=== PATIENT | female | born 1990 | race Caucasian/White ===

== ENCOUNTER 2017-01-03 18:55 | Outpatient (CLI) | payer OTHER ==
[~2017-01-03] VITALS: Ht 154.9 cm; Wt 82.9 kg
[~2017-01-03 18:55] MED LIST: FERR240T9 PO; IBUP800T25 PO; PERCOCET PO; PRENAT PO
[2017-01-03 19:52] VITALS: BP 105/56; PULSE 63; RESP 18; Ht 154.9 cm; Wt 82.9 kg
[2017-01-03 20:33] LABS: ADD UMIC YES; UR ASCORBIC ACID NEGATIVE (NEGATIVE); UR BACTERIA FEW /HPF (NONE SEEN); UR BILIRUBIN (Dip) NEGATIVE (NEGATIVE); UR BLOOD (Dip) NEGATIVE (NEGATIVE); UR CLARITY SLIGHTLY CLOUDY (CLEAR); UR COLOR YELLOW (YELLOW); UR GLUCOSE (Dip) NEGATIVE (NEGATIVE); UR KETONES (Dip) TRACE mg/dL (NEGATIVE); UR LEUKOCYTE ESTERASE (Dip) NEGATIVE Leu/ul (NEGATIVE); UR MUCUS FEW /HPF (NONE SEEN); UR NITRITE (Dip) NEGATIVE (NEGATIVE); UR RBC 1 /HPF (0-5); UR SPECIFIC GRAVITY (Dip) 1.028 (1.003-1.030); UR SQUAMOUS EPITHELIAL CELL FEW /HPF (FEW); UR TOTAL PROTEIN (Dip) 1+ mg/dl (NEGATIVE); UR UROBILINOGEN (Dip) NEGATIVE (NEGATIVE)
--- NOTE | 2017-01-03 22:57 | RADRPT ---
PROCEDURE: OB ultrasound for biophysical profile with BLU. CLINICAL INDICATION: Contractions. TECHNIQUE: Multiple sonographic images of the gravid uterus were obtained. The images were review ed on a PACS workstation. COMPARISON: Ultrasound dated 09/03/2016. FINDINGS: breathing movement = 2/2 tone = 2/2 motion = 2/2 BLU = 2/2 There is a single viable intrauterine gestation with cardiac and a heart rate of 150 bpm. Ther e is a cephalic presentation and posterior, grade II placenta. There is no evidence of abruption or placenta previa. BLU = 10.5 cm IMPRESSION: 1. Single viable intrauterine gestation. 2. Biophysical profile = 8/8. 3. BLU = 10.5 cm. RPTAT: HLBP .Jose Antonio Lopes MD, Date Time Electronically viewed and signed by .Jose Antonio Lopes MD, on 01/03/2017 22:57 .P/
--- NOTE | 2017-01-04 01:12 | TRIAGE ---
OB Triage Datetime Report Generated by CPN: 01/04/2017 01:12 Datetime: 01/03/2017 23:18 Labor Evaluation Frequency: 0 Monitor Mode: External Quality: Mild Pattern: Normal: <= 5 Contractions in 10 Minutes Resting Tone [place]: Relaxed Heart Rate FHR Baseline Rate: 135 Monitor Mode: External US FHR Baseline Changes: No Baseline Change Variability: Moderate 6-25 bpm Accelerations: 15X15 Decelerations: None Category: Category I Datetime: 01/03/2017 22:00 Labor Evaluation Frequency: IRREGULAR Monitor Mode: External Duration (sec)2399: 60 Quality: Mild Pattern: Normal: <= 5 Contractions in 10 Minutes Resting Tone [place]: Relaxed Heart Rate FHR Baseline Rate: 125 Monitor Mode: External US FHR Baseline Changes: No Baseline Change Variability: Moderate 6-25 bpm Accelerations: 15X15 Decelerations: None Category: Category I Datetime: 01/03/2017 21:00 Duration (sec)2399: 100 Datetime: 01/03/2017 20:40 Stage of : OB Triage Datetime: 01/03/2017 20:02 Stage of : OB Triage Datetime: 01/03/2017 20:00 Labor Evaluation Frequency: IRREGULAR Monitor Mode: External Duration (sec)2399: 60-100 Quality: Mild Pattern: Normal: <= 5 Contractions in 10 Minutes Resting Tone [place]: Relaxed Heart Rate FHR Baseline Rate: 125 Monitor Mode: External US FHR Baseline Changes: No Baseline Change Variability: Moderate 6-25 bpm Accelerations: 15X15 Decelerations: None Category: Category I Datetime: 01/03/2017 19:56 Vaginal Exam Dilatation (cms): 0.0 Effacement (%): 0 Station: -3 Exam By: Ana Rosa OSMAN RN Vaginal Bleeding: None Cervix, Consistency: Firm Cervix, Position: Posterior Datetime: 01/03/2017 19:45 Stage of : OB Triage Time of Arrival: 01/03/2017 18:48 EGA: 38.0 Arrived By: Ambulatory Arrived From: Home Chief Complaint: R/O LABOR Movement: Present Time Contractions Began: 01/03/2017 15:00 Rupture of Membranes: Denies Vaginal Bleeding: None Vaginal Discharge: Denies Recent Sexual Intercouse: Denies Abdominal Trauma: Not Applicable Patient Complaints: None Time Provider Notified: 01/03/2017 20:02 Provider Notified: DR HARE Initial Plan: CALL MD, EFM Maternal Assessment Level of Consciousness: Fully Conscious DTR's/Clonus: DTRs 2+; No Clonus Headache: Denies Blurred Vision: No Respiratory Effort: Unlabored; Regular Rhythm; Equal Expansion Breath Sounds, Left: Clear and Equal Breath Sounds, Right: Clear and Equal Nausea/Vomiting: Denies RUQ Epigastric Pain: Denies Lower Extremities Edema: Bilateral Lower Extremities Degree: 1+ Upper Extremities Edema: None Degree: None Facial Edema: None Temperature Route: Oral Fall Risk Assessment History of Falling: (0) No Secondary Diagnosis: (0) No Ambulatory Aid: (0) Bedrest/Nurse Assist IV Therapy: (0) No Gait: (0) Normal/Bedrest/Immobile Mental Status: (0) Oriented to Own Ability Fall Score: 0 Fall Risk Score Definition: No Risk: No action required Monitor Mode: External Monitor Mode: External US Pain Assessment Pain Scale: 5 Pain Presence: Intermittent Pain Type: Contraction Pain Location: Abdomen; Back
--- NOTE | 2017-01-04 05:04 | PN ---
Triage Information Date/Time Reason for visit: Abd/pelvic pain Weeks of Gestation 26 Year-old with SIUP at 38 wks presents with a chief complaint of abdominal and back pain. She has been receiving her care with Dr. Colindres. She states good movement. She denies nausea, vomiting, shortness of breath, chest pain, headache, visual changes, vaginal bleeding or LOF. General: Patient appears well, alert and oriented, NAD, appropriate mood and affect /Para Diabetes: none Objective Vital Signs Date Time Temp Pulse Resp B/P Pulse Ox O2 Delivery O2 Flow Rate FiO2 01/03/17 19:52 98.4 63 18 105/56 Room Air Heart Rate: 120's Exam ABD: gravid, soft, non-tender. Back: No CVA tenderness (B/L) LE: No clubbing, cyanosis, edema, thigh or calf tenderness bilaterally FHT: 125 bpm , moderate variability with acceleration, no deceleration-category I Contractions: Occasional (Q15-18 min) SVE: close/thick/high/ceph/intact membrane Results/Medications Results 24 hrs Laboratory Tests Test 01/03/17 19:56 Urine Color YELLOW Urine Clarity SLIGHTLY CLOUDY A Urine pH 5.0 Urine Specific [place] 1.028 Urine Ketones TRACE A Urine Nitrite NEGATIVE Urine Bilirubin NEGATIVE Urine Urobilinogen NEGATIVE Urine Leukocyte Esterase NEGATIVE Urine Microscopic RBC 1 Urine Microscopic WBC 3 Urine Squamous Epithelial Cells FEW Urine Bacteria FEW A Urine Mucus FEW A Urine Hemoglobin NEGATIVE Urine Glucose NEGATIVE Urine Total Protein 1+ H Assessment/Plan 26 Year-old with SIUP at 38 wks with occasional ucs. No cx changes in repeat exam in 2hrs. FHR: No sign of metabolic acidosis- Category I Continuous EFM, toco. Reactive NST. BPP: 10/10 - Symptoms and sign of labor, preeclampsia, kick count discussed with patient, she voiced understanding. All of her questions answered. - Patient was discharged home in stable condition with the appropriate discharge instructions provided. I would like patient to have close follow-up with her primary physician or outpatient clinic in 1-2 days or return to the ER for worsening symptoms or any other urgent concerns. JOSHUA GLEZ Jan 04, 2017 05:04
== END 2017-01-03 23:38 | disposition home or self-care (01) ==
LOC: OBT 18:55 → L-D 18:57 → OBT 23:38
PROVIDERS: ATTEND Obstetrics & Gynecology
DX: O26.893 Other specified pregnancy related conditions, third trimester (principal); Z3A.34 34 weeks gestation of pregnancy; R10.2 Pelvic and perineal pain; O62.9 Abnormality of forces of labor, unspecified
CPT/HCPCS: 76818; 81001; 87086; Z7500; G0463

== ENCOUNTER 2017-01-08 04:24 | Inpatient (IN) | payer OTHER ==
[~2017-01-08] VITALS: Ht 154.9 cm; Wt 83.4 kg
[2017-01-08 04:35] VITALS: Ht 154.9 cm; Wt 83.4 kg
[2017-01-08] MEDS ORDERED: CEFAZOLIN 2 GM/50 ML (PMX) 50 ML IV SCH (05:30)
[2017-01-08] MEDS ORDERED: OXYTOCIN 30 UNITS/LR 500 ML IV SCH (05:30)
[2017-01-08] MEDS ORDERED: METHYLERGONOVINE 0.2 MG INJ IM PRN ×2 (05:30→16:30)
[2017-01-08] MEDS ORDERED: OXYTOCIN 30 UNITS/LR 500 ML IV PRN ×2 (05:30→16:30)
[2017-01-08] MEDS ORDERED: CARBOPROST 250 MCG INJ IM PRN ×2 (05:30→16:30)
[2017-01-08] MEDS ORDERED: MISOPROSTOL 200 MCG TAB PR PRN ×2 (05:30→16:30)
[2017-01-08] MEDS: LACTATED RINGER'S 1,000 ML IV SCH ×5 (05:57→20:02)
[2017-01-08 07:18] VITALS: BP 126/62; PULSE 58
[2017-01-08 08:55] LABS: ABNORMAL IP MESSAGE 1; BASOPHILS % 0.2 % (0.0-2.0); EOSINOPHILS % 0.3 % (0.0-7.0); HEMATOCRIT 28.3 % (37.0-47.0); HEMOGLOBIN 8.7 g/dl (12.0-16.0); LYMPHOCYTES # 2.8 10^3/ul (0.8-2.9); LYMPHOCYTES % 29.7 % (15.0-51.0); MEAN CORPUSCULAR HEMOGLOBIN 21.7 pg (29.0-33.0); MEAN CORPUSCULAR HGB CONC 30.7 g/dl (32.0-37.0); MEAN CORPUSCULAR VOLUME 70.6 fl (82.0-101.0); MONOCYTE # 0.7 10^3/ul (0.3-0.9); NEUTROPHILS % 62.3 % (39.0-77.0); PLATELET COUNT 174 10^3/UL (140-415); RED BLOOD COUNT 4.01 10^6/ul (4.20-5.40); RED CELL DISTRIBUTION WIDTH 15.9 % (11.5-14.5); WHITE BLOOD COUNT 9.3 10^3/ul (4.8-10.8)
[2017-01-08 09:15] LABS: POSITIVE DIFF @See below
[2017-01-08 09:38] LABS: INR 0.92; PARTIAL THROMBOPLASTIN TIME 27.5 Sec (25.0-35.0); PROTIME 12.4 Sec (12.2-14.2)
[2017-01-08] MEDS ORDERED: AMPICILLIN 2 GM/NS (PMX) 100 ML ONE (10:35)
[2017-01-08] MEDS ORDERED: AMPICILLIN 2 GM/NS (PMX) 100 ML IVPB ONE (11:00)
[2017-01-08] MEDS ORDERED: OXYTOCIN 10 UNIT INJ ONE (11:58)
[2017-01-08] MEDS ORDERED: ONDANSETRON 4 MG INJ ONE (11:58)
[2017-01-08] MEDS ORDERED: morphine SULFATE/PF (10 MG/10 ML) INJ ONE (11:58)
[2017-01-08] MEDS ORDERED: PHENYLephrine (100 MCG/ML) 5ML SYG ONE (11:58)
[2017-01-08] MEDS ORDERED: ONDANSETRON 4 MG INJ IV PRN (13:00)
[2017-01-08] MEDS ORDERED: DIPHENHYDRAMINE 50 MG INJ IV PRN (13:00)
[2017-01-08] MEDS ORDERED: morphine 2 MG INJ IV PRN (13:00)
[2017-01-08] MEDS ORDERED: NALOXONE (0.4 MG/ML) INJ IV PRN (13:00)
--- NOTE | 2017-01-08 13:12 | HP ---
Date/Time of Note Date/Time of Note DATE: 01/08/17 TIME: 13:04 OB - History Hx of Present Free Text/Dictation Admitted at 37+ weeks with complaint of spontaneous rupture of membrane and liver pains a few hours prior to admission Rupture of membranes was confirmed Patient appears to have regular uterine contractions She also desired sterilization Chief Complaint: Spontaneous rupture of membrane in labor pains Last Menstrual Period: Apr 13, 2016 Estimated Due Date: Jan 18, 2017 : 3 Para: 2 Care: Good Care Ultrasounds: Normal mid trimester US Obstetrical Complications: None Past Family/Social History * Past Medical, Surgical, Family and Obstetric Histories reviewed from chart. Blood Type: A+ Rubella: immune RPR/VDRL: Negative GBS Status: Unknown HBsAG: Negative OB Admission Exam Vital Signs Vital Signs Vital Signs Date Time Temp Pulse Resp B/P Pulse Ox O2 Delivery O2 Flow Rate FiO2 01/08/17 07:18 97.9 58 126/62 Room Air Physical Exam HEENT: WNL Heart: Rhythm Normal Lungs: Clear, Equal Abdomen: WNL Extremities: Normal Reflexes: Normal Cervical Dilatation: Fingertip Effacement: 0% Station: -3 Membranes: Ruptured Amniotic Fluid: Clear Heart Rate: 140's Accelerations: Accelerations Present Decelerations: No Decelerations Varibility: Marked Contractions on Admission: < 5 Minutes Apart Date/Time Contractions Began: 01/08/2017 Frequency of Contractions: q 5 Duration: >60 seconds Intensity: Firm Last 72 hours Lab Results CBC & BMP 01/08/17 05:50 OB Assessment/Plan Reason for admission: section Other Assessment: 37+ weeks gestation Spontaneous rupture of membranes in labor pain Previous 2 Desires sterilization Other plan: Repeat and bilateral tubal ligation Patient had good awareness of nature and complications of C/S procedure including but but limited to infection and hemorrhage. Permanency and failure of tubal ligation procedure asa well as its future complications including but not limited to pelvic pain or ectopic were also clear to the patient and agreed to undergo C/S + BTL JÚNIOR CH MD Jan 08, 2017 13:11
--- NOTE | 2017-01-08 13:15 | OPR ---
Operative Report Planned Procedure Procedure date Jan 08, 2017 Procedure(s) Repeat and tubal ligation Performed by: JÚNIOR CH MD Assisting provider: ASHLEY MAYA MD Anesthesiologist: PHYLLIS TOMPKINS MD Pre-procedure diagnosis 37+ weeks gestation Previous 2 Desires sterilization Spontaneous rupture of membrane and labor pain Anesthesia Type: spinal Procedure Description Under satisfactory anaesthesia a Pfannenstiel incision was made two fingerbreadth above and parallel to the symphysis of pubis around the previous scar and previous scar was removed Incision was extended laterally to the border of the Recti muscles on either sides. Incision was carried down with sharp and blunt dissection until fascia was reached. Anterior Recti muscle fascia was incised in mid portion and incision extended laterally to the border of skin incision. Fascia was mobilized from muscle superiorly and Recti muscles were from midline using sharp and blunt dissection. Peritoneum was visualized; Avoiding bowel and bladder it was incised . Incision was extended superiorly and inferiorly. Bladder blade was placed. Posterior peritoneum covering the lower segment of the uterus and lower segment of the uterus were incised.Low transverse uterine incision was made on lower segment of the uterus. Incision extended laterally to the border of Round Lig. on either sides and baby was delivered from OT. position . Amniotic fluid appeared clear. Cord blood was obtained and cord had 3 vessels . Placenta was delivered spontaneously and appeared intact and complete. Intrauterine cavity was rubbed with a laparotomy sponge. Uterine incision was closed in 2 layers using running stitches of No1 Monocryl. Hemostasis appeared secure. Ovaries and Fallopian tubes were within normal limits. Bilateral Tubal Ligation was performed by following procedure: R fallopian tube was raised in mid portion; 3 cm below the raised area single 0 Plain Gut stitch was placed. Another 0 Plain gut stitch was placed half a centimeter below the first and a knuckle of tube that was formed was incised above the first stitch. Same procedure was done on fallopian tube on the opposite side. Hemostasis appeared to be secure on ligated sites of either fallopian tubes. Announcing needle, lap sponge and instrument count to be correct abdomen was closed in layers as follows: Peritoneum and Recti muscles with running stitches of 20 Vicryl. Fascia with running stitch of No 1 PDS. Subcutaneous tissue with running stitches of 20 Chromic and skin was closed using pepe. Patient tolerated the procedure well and was transferred to [facility] in good condition. Post-Procedure Post-procedure diagnosis Status post repeat and tubal ligation Findings: Live Baby Normal right and left fallopian tubes and ovaries Specimen removed: Yes Specimen description Segments of right and left fallopian tubes Complications: None Pt Condition post procedure: stable Disposition: PACU Physician Certification I, the undersigned physician, hereby certify that I have discussed the procedure described in this consent form with this patient (or the patient's legal hobbies and crafts sales representative), including: * The risk and benefits of the procedure; * Any adverse reactions that may reasonably be expected to occur; * Any alternative efficacious methods of treatment which may be medically viable ; * The potential problems that may occur during recuperation; * Potential for blood transfusion and associated risks/benefits; and * Any research or economic interest I may have regarding this treatment. I further certify that the patient/legally responsible person was encouraged to ask question and that all questions were answered. JÚNIOR CH MD Jan 08, 2017 13:14
[2017-01-08 15:45] VITALS: BP 116/67; PULSE 47; RESP 16
[2017-01-08 16:00] VITALS: BP 125/63; PULSE 50; RESP 16
[2017-01-08] MEDS ORDERED: OXYCODONE/ACETAMINOPHEN (5/325) TAB PO PRN (16:30)
[2017-01-08] MEDS ORDERED: NA PHOSPHATE/BIPHOS 133 ML ENEMA PR PRN (16:30)
[2017-01-08] MEDS ORDERED: LANOLIN 7 GM TUBE TOP PRN (16:30)
[2017-01-08] MEDS: CEFAZOLIN 2 GM/50 ML (PMX) 50 ML IVPB SCH (16:54)
[2017-01-08] MEDS: KETOROLAC 30 MG INJ IV PRN (17:12)
[2017-01-08 17:30] VITALS: BP 124/70; PULSE 52; RESP 18
[2017-01-08 20:00] VITALS: BP 115/64; PULSE 52; RESP 18
[2017-01-08] MEDS: SENNA/DOCUSATE NA (8.6MG/50MG) TAB PO SCH (21:00)
[2017-01-08] MEDS: CLINDAMYCIN 300 MG CAP PO SCH (23:48)
[2017-01-09] VITALS: BP 107/53; PULSE 63; RESP 18
[2017-01-09] MEDS: CEFAZOLIN 2 GM/50 ML (PMX) 50 ML IVPB SCH ×2 (00:29→08:11)
[2017-01-09 04:00] VITALS: BP 101/58; PULSE 58; RESP 18
[2017-01-09] MEDS: CLINDAMYCIN 300 MG CAP PO SCH ×4 (06:27→23:50)
[2017-01-09] MEDS: KETOROLAC 30 MG INJ IV PRN ×2 (06:27→12:34)
[2017-01-09] MEDS: LACTATED RINGER'S 1,000 ML IV SCH (06:28)
[2017-01-09 08:10] VITALS: BP 118/56; PULSE 63; RESP 18
[2017-01-09] MEDS ORDERED: BISACODYL 10 MG SUPP PR ONE ×2 (09:00→23:02)
[2017-01-09 09:58] LABS: ABNORMAL IP MESSAGE 1; BASOPHILS % 0.1 % (0.0-2.0); EOSINOPHILS % 0.1 % (0.0-7.0); HEMATOCRIT 25.7 % (37.0-47.0); LYMPHOCYTES # 1.9 10^3/ul (0.8-2.9); LYMPHOCYTES % 18.6 % (15.0-51.0); MEAN CORPUSCULAR HEMOGLOBIN 21.9 pg (29.0-33.0); MEAN CORPUSCULAR HGB CONC 31.1 g/dl (32.0-37.0); MEAN CORPUSCULAR VOLUME 70.2 fl (82.0-101.0); MONOCYTE # 0.7 10^3/ul (0.3-0.9); MONOCYTES % 6.6 % (0.0-11.0); NEUTROPHILS % 74.1 % (39.0-77.0); PLATELET COUNT 144 10^3/UL (140-415); RED BLOOD COUNT 3.66 10^6/ul (4.20-5.40); RED CELL DISTRIBUTION WIDTH 15.8 % (11.5-14.5); WHITE BLOOD COUNT 10.2 10^3/ul (4.8-10.8)
[2017-01-09 10:03] LABS: POSITIVE DIFF @See below
--- NOTE | 2017-01-09 11:15 | PN ---
Date/Time of Note Date/Time of Note DATE: 01/09/17 TIME: 11:13 Assessment/Plan VTE Prophylaxis VTE Prophylaxis Intervention: ambulation Lines/Catheters IV Catheter Type (from Nrsg): Peripheral IV Assessment/Plan Assessment/Plan Status post postop day 1 Advanced diet Ambulate Monitor vitals Subjective 24 Hr Interval Summary No bowel movement Passing flatus Voiding well Constitutional: BM, ambulates, flatus, improved, no complaints, urine output Pain Control: well controlled Exam/Review of Systems Vital Signs Vitals Vital Signs Date Time Temp Pulse Resp B/P Pulse Ox O2 Delivery O2 Flow Rate FiO2 01/09/17 08:10 98.4 63 18 118/56 Room Air Intake and Output 01/08/17 01/08/17 01/09/17 15:00 23:00 07:00 Intake Total 2500 ml 500 ml 850 ml Output Total 750 ml 300 ml 1600 ml Balance 1750 ml 200 ml -750 ml Exam Free Text/Dictation Abdomen is soft bowel sounds present Abdomen is not distended Incision is covered Constitutional: alert, oriented, well developed Psych: nl mood/affect, no complaints Head: atraumatic, normocephalic Eyes: EOMI, nl conjunctiva, nl lids, nl sclera ENMT: mucosa pink and moist, nl external ears & nose, nl lips & teeth, nl nasal mucosa & septum Neck: non-tender, supple Respiratory: clear to auscultation, normal air movement Cardiovascular: nl pulses, regular rate and rhythm Gastrointestinal: nl liver, spleen, non-tender, soft Drains None Musculoskeletal: nl extremities to inspection, nl gait and stance Extremities: normal pulses Neurological: UNEMPLOYMENT BENEFITS CLAIMS TAKER II-XII intact, nl mental status, nl speech, nl strength Skin: nl turgor, rash or lesions Lymph: nl lymph nodes Results Result Diagram: 01/09/17 0935 JÚNIOR CH MD Jan 09, 2017 11:15
[2017-01-09] MEDS: SENNA/DOCUSATE NA (8.6MG/50MG) TAB PO SCH ×2 (12:04→21:33)
[2017-01-09] MEDS: IBUPROFEN 800 MG TAB PO SCH ×2 (14:00→21:33)
[2017-01-09 16:00] VITALS: BP 121/73; PULSE 68; RESP 18
[2017-01-09] MEDS: HYDROCODONE/APAP (5/325) TAB PO PRN (18:01)
[2017-01-09 20:00] VITALS: BP 123/68; PULSE 74; RESP 18
[2017-01-10 04:08] VITALS: BP 125/73; PULSE 60; RESP 18
[2017-01-10] MEDS: IBUPROFEN 800 MG TAB PO SCH ×2 (05:28→15:30)
[2017-01-10] MEDS: CLINDAMYCIN 300 MG CAP PO SCH ×2 (05:29→11:50)
[2017-01-10 08:00] VITALS: BP 132/73; PULSE 58; RESP 18
[2017-01-10] MEDS: HYDROCODONE/APAP (5/325) TAB PO PRN (08:00)
[2017-01-10] MEDS: SENNA/DOCUSATE NA (8.6MG/50MG) TAB PO SCH (08:00)
[2017-01-10 16:00] VITALS: BP 125/80; PULSE 62; RESP 18
--- NOTE | 2017-01-10 16:42 | DS ---
Date/Time of Note Date/Time of Note Home next DATE: 01/10/17 TIME: 16:41 Obstetrical Discharge Record Final Diagnosis Final Diagnosis: Term delivered Other Final Diagnosis Status post repeat and bilateral tubal ligation Vaginal Delivery Obstetrical Delivery: Bilateral Tubal Ligation Section Section: Repeat Condition on Discharge Physical Assessment Last Vitals: See nurse's note Voiding: Yes Bowel Movement: Yes Breast: Soft, non-tender, Filling Fundus: Firm Abdomen and Incision: Soft bowel sounds present Abdomen is not distended Incision is without induration or erythema and healing well Episiotomy: Not applicable Calf Tenderness: No Patient Condition: Good JÚNIOR CH MD Jan 10, 2017 16:41
--- NOTE | 2017-01-10 16:43 | DS ---
Date/Time of Note Date/Time of Note DATE: 01/10/17 TIME: 16:42 Discharge Summary Admission/Discharge Info Admit Date/Time Jan 08, 2017 at 06:42 Discharge Date/Time January 11, 2017 Discharge Diagnosis Status post repeat and bilateral tubal ligation Patient Condition: Good Procedures Repeat and bilateral tubal ligation Hx of Present Illness 26-year-old female had repeat and bilateral tubal ligation Hospital Course Uncomplicated Home Meds Reported Medications Multivit/Min/Fol Ac/Iron/Pren* ( S*) 1 Tab Tab, 1 TAB PO AM, TAB 03/25/15 Discontinued Reported Medications Ferrous Gluconate (Iron) 1 Tab Tablet, 1 TAB PO DAILY 03/25/15 Discontinued Scripts Oxycodone Hcl/Acetaminophen (Percocet) 1 Tab Tab, 2 TAB PO Q4H Y for PAIN LEVEL 6-10, #30 TAB 0 Refills Prov:JÚNIOR CH MD 04/24/15 Ibuprofen* (Ibuprofen*) 800 Mg Tab, 800 MG PO Q8, #20 TAB 0 Refills Prov:JÚNIOR CH MD 04/24/15 Follow-up Plan 2 3 days in clinic for staple removal Primary Care Provider Angelo Romo MD Time spent on discharge: > 30 minutes JÚNIOR CH MD Jan 10, 2017 16:43
--- NOTE | 2017-01-10 16:44 | PD.PPDC ---
[employer] Discharge Instruction Provider Information Physician Information 26-year-old female had repeat and tubal ligation Diagnosis Final Diagnosis: Status post and tubal ligation Condition Patient Condition: Good Diet Diet: Resume Regular Diet Activity/Restrictions Activity: September Shower Restrictions: No Exercising No Lifting Nothing in the Vagina Return to Work or School: Mar 14, 2017 Wound/Drain Care Instructions Wound/Drain Care Instructions: Keep clean and dry Follow-up Follow-up with Physician: 2, 3, Day/Days (In clinic for staple removal) Return to clinic for WOOL PRESSER Instructions: Fever greater than 101 Chills OB Instructions: Breast Tenderness Depression Surgical Instructions: Incisional Drainage Incisional Redness JÚNIOR CH MD Jan 10, 2017 16:44
[2017-01-10] MEDS ORDERED: IBUP800T25 PO (16:45)
[2017-01-11] MEDS ORDERED: DIPHTH/TET/ACEL PERTUSS (ADULT) 0.5 ML VIAL IM* ONE (09:00)
== END 2017-01-10 18:00 | disposition home or self-care (01) | DRG 766 ==
LOC: OBT 04:24 → L-D 04:26 → OBT 06:42 → L-D 06:42 → PP1 15:38
PROVIDERS: ADMIT Obstetrics & Gynecology; ATTEND Obstetrics & Gynecology
PROC: 0UB70ZZ Excision of Bilateral Fallopian Tubes, Open Approach (ICD-10-PCS; 2017-01-08)
PROC: 10D00Z1 Extraction of Products of Conception, Low, Open Approach (ICD-10-PCS; principal; 2017-01-08 12:30)
DX: O34.211 Maternal care for low transverse scar from previous cesarean delivery (principal); Z30.2 Encounter for sterilization; Z37.0 Single live birth; Z3A.37 37 weeks gestation of pregnancy
CPT/HCPCS: 36415; 84112; 85025; 85610; 85730; 86592; 86850; 86900; 86901; 87340; 88302; 99464; G0463; J0290; J0690; J1885; J2274; J2370; J2405; J2590; J7120